=== PATIENT | male | born 1985 | race Caucasian/White ===

== ENCOUNTER 2019-08-14 15:21 | Inpatient (IN) | payer OTHER ==
[~2019-08-14] VITALS: Ht 172.7 cm; Wt 78.2 kg
[2019-08-14 16:00] VITALS: BP 129/74
[2019-08-14] MEDS ORDERED: SERT100T12 PO (16:07)
[2019-08-14] MEDS ORDERED: CIPR500T5 PO (16:07)
[2019-08-14] MEDS ORDERED: OMEP20CA11 PO (16:07)
[2019-08-14] MEDS ORDERED: AMLO5TAB9 PO (16:07)
[2019-08-14] MEDS ORDERED: CLON0.5T4 PO (16:07)
[2019-08-14] MEDS ORDERED: AMOX1TAB16 PO (16:07)
[2019-08-14] MEDS ORDERED: TRAZ-252 PO (16:07)
[2019-08-14] MEDS ORDERED: HYDR-3972 PO (16:07)
[2019-08-14] MEDS ORDERED: ONDANSETRON HCL/PF 4 MG/2 ML VIAL IVP PRN (16:30)
[2019-08-14] MEDS ORDERED: Z GUARD REMEDY 2 OZ OINT TP PRN (16:30)
--- NOTE | 2019-08-14 17:00 | NUR ---
RN OPENING NOTES RECEIVED PT VIA CHETNA A DIRECT ADMIN FROM [facility]. HE IS AOX4, VERBAL, AND AMBULATORY. HEAD IS MIDLINE, EYES ARE PERRLA. SKIN IS INTACT. PT IS COMPLAINING OF ABDOMINAL PAIN, ABDOMEN IS DISTENDED. BOWEL SOUNDS ARE HYPERACTIVE IN ALL 4 QUADRANTS. LUNGS SOUNDS ARE CLEAR BILATERALLY. PT HAS A 22 G ON LAC AND HAS A DRAIN ON THE BACK. SAFETY MEASURES HAVE BEEN IMPLEMENTED, CALL LIGHT IS WITHIN REACH, BED IS IN LOWEST AND LOCKED POSITION, WILL CONTINUE TO MONITOR FOR ANY CHANGES.
[2019-08-14] MEDS: IV NS 0.9% 1,000 ML IV PRN (17:13)
[2019-08-14] MEDS: MORPHINE SULFATE INJ 2 MG/ML DISP.SYRIN IV PRN ×2 (17:14→22:21)
--- NOTE | 2019-08-14 19:16 | NUR ---
RN CLOSING NOTES PATIENT IS RESTING IN BED COMFORTABLY AT THIS TIME. MORPHINE HAS HELPED WITH PAIN. PT NEEDS HAVE BEEN MET,NO ACUTE CHANGES OCCURRED THROUGHOUT THE SHIFT, VITAL SIGNS ARE STABLE. SAFETY MEASURES HAVE BEEN IMPLEMENTED, CALL LIGHT IS WITHIN REACH, BED IS IN LOWEST AND LOCKED POSITION, SIDE RAILS UP X2, WILL ENDORSE TO NIGHTSHIFT RN FOR CONTINUITY OF CARE.
--- NOTE | 2019-08-14 19:30 | NUR ---
MS RN OPENING NOTE RECEIVED PATIENT A/O X4 WITH NO SIGNS OF DISTRESS AND VERBAL. PATIENT ON ROOM AIR. SAJAN ACCESS ON LEFT AC WITH #22 GAUGE WITH NS RUNNING AT 150ML/HR. PATIENT IS ON BED REST BUT EXTREMITIES WNL. ALL SKIN IS INTACT. PATIENT HAS A HEMOVAC WITH NO SIGN OF IRRITATION OR INFECTION. WILL CONTINUE TO MONITOR.
[2019-08-14 20:00] VITALS: BP 145/81
--- NOTE | 2019-08-14 20:30 | NUR ---
[address] CHRISTIAN REGARDING PATIENT'S REQUEST FOR HIS ATB FROM HOME, PER DR. CHRISTIAN PATIENT IS NPO FOR PANCREATITIS AND SHOULD NOT HAVE ANYTHING BY MOUTH, ASKED IF HE WANTS ATB VIA IV BUT HE SAID NO. PATIENT NOTIFIED.
[2019-08-15] MEDS: IV NS 0.9% 1,000 ML IV PRN ×2 (00:03→14:08)
[2019-08-15 04:00] VITALS: BP 111/67
[2019-08-15] MEDS: MORPHINE SULFATE INJ 2 MG/ML DISP.SYRIN IV PRN ×5 (06:05→22:35)
[2019-08-15 06:57] LABS: BASOPHILS % (AUTO) 0.7 % (0.0-2.0); EOSINOPHILS % (AUTO) 3.4 % (0.0-6.0); HEMATOCRIT 36 % (39-51); LYMPHOCYTES % (AUTO) 19.7 % (20.0-44.0); MEAN CORPUSCULAR HGB CONC 33 g/dl (31.0-36.0); MEAN CORPUSCULAR VOLUME 83 fL (80-96); MONOCYTES # (AUTO) 0.3 /CMM (0.1-1.30); MONOCYTES % (AUTO) 6.9 % (2.0-12.0); NEUTROPHILS # (AUTO) 3.5 /CMM (1.8-8.9); NEUTROPHILS % (AUTO) 69.3 % (43.0-81.0); PLATELET COUNT (AUTO) 151 /CMM (150-450); RED BLOOD CELL COUNT(AUTO) 4.32 MIL/uL (4.5-6.0)
[2019-08-15 07:02] LABS: ALBUMIN 3.6 g/dL (3.4-5.0); BILIRUBIN,TOTAL 0.5 mg/dL (0.2-1.0); CALCIUM, SERUM 8.3 mg/dL (8.5-10.1); CREATININE 0.7 mg/dL (0.6-1.3); MAGNESIUM 1.8 mg/dL (1.8-2.4); PHOSPHORUS 3.5 mg/dL (2.5-4.9); TOTAL PROTEIN, SERUM 6.5 g/dL (6.4-8.2)
--- NOTE | 2019-08-15 07:25 | NUR ---
MS RN OPENING NOTE RECEIVED BEDSIDE REPORT FROM PM NURSE.PATIENT IS A/O X4.ABLE TO ANSWER BY CALLING NAME. NO SOB NO S/S OF DISTRESS NOTED. PATIENT ON ROOM AIR. IV ON LEFT AC #22 GAUGE WITH NS AT 150ML/HR. PATIENT HAS A HEMOVAC ,WILL DO CHECK LATER,PATIENT REQUESTING TO SLEEP MORE.NPO NOW.BED IS LOCKED AND IN LOW POSITION.SRX3.BED ALARM ON.WILL CONTINUE TO MONITOR. WILL CONTINUE TO MONITOR.
--- NOTE | 2019-08-15 07:30 | NUR ---
MS RN CLOSING NOTE PATIENT RESTING IN BED WITH NO SIGNS OF DISTRESS. ON ROOM AIR AND NO SOB. PATIENT HAS IV ON RIGHT MIDLINE RUNNING AT 150ML/HR. ALL SAFETY PRECAUTIONS APPLIED. REPORT GIVEN TO MORNING NURSE
[2019-08-15 08:00] VITALS: BP 138/83
[2019-08-15] MEDS ORDERED: IOHEXOL-300 100 ML VIAL IV ONE (09:06)
[2019-08-15] MEDS ORDERED: HYDROCODONE/APAP 5/325MG 1 EACH TABLET PO PRN (10:30)
--- NOTE | 2019-08-15 11:00 | NUR ---
MS RN NOTE SEEN BY ,UPDATED ABOUT PATIENT CONDITION.CHANGED NPO STATUS TO CLEAR LIQUID.GOT NEW ORDERS.WILL CONTINUE TO MONITOR.HEMOVAC DRESSING CHANGE DONE.SCANT AMOUNT OF GREENISH DISCHARGE SEEN IN HEMOVAC.
[2019-08-15] MEDS: clonazePAM 0.5 MG TABLET PO PRN (12:56)
[2019-08-15] MEDS ORDERED: MAG HYDROX/AL HYDROX/SIMETH 30 ML UDC PO PRN (13:00)
[2019-08-15] MEDS: PANTOPRAZOLE 40 MG TABLET.DR PO SCH (13:20)
[2019-08-15] MEDS: NICOTINE PATCH (21MG) 21 MG PATCH.TD24 TD SCH (13:20)
[2019-08-15] MEDS ORDERED: SERTRALINE HCL 50 MG TABLET PO SCH (13:30)
[2019-08-15] MEDS: AMLODIPINE BESYLATE 5 MG TABLET PO SCH (13:33)
[2019-08-15] MEDS ORDERED: CIPROFLOXACIN HCL 250 MG TABLET PO SCH ×2 (14:00→21:00)
[2019-08-15] MEDS ORDERED: AMOX/CLAVULANATE 875 MG TABLET PO SCH (14:00)
--- NOTE | 2019-08-15 14:00 | NUR ---
MS RN NOTE PATIENT WAS REALLY UPSET YELLING AND ANGRY.PRN MEDS GIVEN.PATIENT WANT ANTIBIOTICS TO BE CONTINUE AND TO BE GIVEN ALL MEDS THAT WAS NOT SCHEDULED ON TIME. MADE AWARE.CHANGED MED SCHEDULE AND PLACED ANTIBIOTICS.GOT NEW ORDER FOR NICOTINE PATCH PER PATIENT REQUEST.CALL MADE [facility] TO OBTAIN RECORDS OF CT SCAN AND IMAGES.SPOKE TO JAMILAH.EVEN AFTER OFFICE HOURS WILL HAVE SOME ONE AT OFFICE.OK TO PSYCHIATRY INSTRUCTOR AFTER OFFICE HOURS TOO. RELEASE OF INFORMATION FAXED.WILLAM MADE AWARE.ALL AROUND INKER MACHINE TO PSYCHIATRY INSTRUCTOR FROM [facility].[phone].CANCELLED ORDER FROM MARK TO PSYCHIATRY INSTRUCTOR.SPOKE TO HUONG. PER PATIENT HE DONT HAVE ANYONE TO PSYCHIATRY INSTRUCTOR FROM [facility].WILL CONTINUE TO MONITOR.
--- NOTE | 2019-08-15 15:59 | NUR ---
MS RN NOTE SEEN BY GRABIEL EVANGELISTA,UPDATED ABOUT PATIENT CONDITION.HE REFUSED IVF.EXPLAINED RISK AND BENEFIT STILL REFUSING.
[2019-08-15 16:00] VITALS: BP 146/93
[2019-08-15] MEDS ORDERED: VANCOMYCIN 1.5 GM in IV D5W 500 ML IV SCH (18:00)
[2019-08-15] MEDS ORDERED: FEE PK DOSING 1 MIN EA MC ONE (18:10)
--- NOTE | 2019-08-15 18:30 | NUR ---
MS RN NOTE JESSICA FROM GI NOTIFIED ABOUT CONSULT, NEED TO SEE THE PATIENT. MADE AWARE ABOUT CD RECEIVED.TO GIVE TO RADIOLOGIST .WENT TO RADIOLOGY BY [id number]. GONE FOR THE DAY.PACKET GIVEN TO JOAQUIM IN RADIOLOGY.CALL MADE TO .GOT NEW ORDER FOR HIDA SCAN WITH CCK EJECTION FRACTION.PATIENT MADE AWARE.LEFT MESSAGE TO .WAITING TO CALL BACK.WILL CONTINUE TO MONITOR.
--- NOTE | 2019-08-15 19:24 | NUR ---
MS RN NOTE ENDORSED TO PM NURSE FOR SAROJ.VITAL SIGNS STABLE. MADE AWARE THAT CT RESULT WILL BE READ BY TOMORROW.
--- NOTE | 2019-08-15 19:40 | NUR ---
MS RN OPENING NOTE, RECEIVED BEDSIDE REPORT FROM PM NURSE. PATIENT IS A/O X4. ABLE TO ANSWER BY CALLING NAME. NO SOB NO S/S OF DISTRESS NOTED. PATIENT ON ROOM AIR. IV ON LEFT AC #22 GAUGE WITH NS AT 150ML/HR. PATIENT HAS A HEMOVAC , WILL DO CHECK LATER, PATIENT REQUESTING TO SLEEP MORE. ON FULL LIQUID DIET NOW AND HE IS NPO AFTER MIDNIGHT FOR THE SURGERY IN THE MORNING . BED IS LOCKED AND IN LOW POSITION. . BED ALARM ON. WILL CONTINUE TO MONITOR.
[2019-08-15 20:00] VITALS: BP 126/86
[2019-08-15] MEDS: PIPERACILLIN /TAZOBACTAM 3.375 G in IV D5W 50 ML IV SCH (20:07)
[2019-08-15] MEDS: TRAZODONE 50 MG TABLET PO SCH (21:45)
[2019-08-16] VITALS: BP 126/86
[2019-08-16] MEDS: PIPERACILLIN /TAZOBACTAM 3.375 G in IV D5W 50 ML IV SCH ×3 (00:15→12:05)
[2019-08-16] MEDS ORDERED: VANCOMYCIN 1.25 GM in IV D5W 500 ML IV SCH (02:00)
[2019-08-16 04:00] VITALS: BP 108/71
[2019-08-16] MEDS: MORPHINE SULFATE INJ 2 MG/ML DISP.SYRIN IV PRN ×4 (04:24→21:09)
--- NOTE | 2019-08-16 07:20 | NUR ---
MS RN CLOSING NOTE, PATIENT IN BED SLEEPING ,A/O X4. ABLE TO ANSWER BY CALLING NAME. NO SOB NO S/S OF DISTRESS NOTED. PATIENT ON ROOM AIR. IV ON LEFT AC #22 GAUGE WITH NS AT 150ML/HR. PATIENT HAS A HEMOVAC , WILL DO CHECK LATER, PATIENT REQUESTING TO SLEEP MORE. ON FULL LIQUID DIET NOW AND HE IS NPO AFTER MIDNIGHT FOR THE SURGERY IN THE MORNING . BED IS LOCKED AND IN LOW POSITION. . BED ALARM ON. WILL CONTINUE TO MONITOR.
[2019-08-16] MEDS ORDERED: PANTOPRAZOLE 40 MG TABLET.DR PO SCH (07:30)
--- NOTE | 2019-08-16 07:39 | NUR ---
MS RN CLOSING NOTE, PATIENT IN BED SLEEPING A/O X4. ABLE TO ANSWER BY CALLING NAME. NO SOB NO S/S OF DISTRESS NOTED. PATIENT ON ROOM AIR. IV ON LEFT AC #22 GAUGE WITH NS AT 150ML/HR. PATIENT HAS A HEMOVAC , PATIENT WAS ABLE TO SLEEP WELL DURING NIGHT. PATIENT IS NPO SINCE MIDNIGHT.. BED IS LOCKED AND IN LOW POSITION. WILL ENDORSE THE PATIENT ON AM RN FOR SAROJ.
[2019-08-16 07:44] LABS: CALCIUM, SERUM 8.8 mg/dL (8.5-10.1); CREATININE 0.7 mg/dL (0.6-1.3); POTASSIUM 3.6 mmol/L (3.5-5.1)
[2019-08-16 08:00] VITALS: BP 112/71
[2019-08-16] MEDS ORDERED: AMLODIPINE BESYLATE 5 MG TABLET PO SCH (09:00)
[2019-08-16] MEDS ORDERED: SERTRALINE HCL 50 MG TABLET PO SCH (09:00)
[2019-08-16] MEDS: NICOTINE PATCH (21MG) 21 MG PATCH.TD24 TD SCH (09:00)
[2019-08-16] MEDS: SERTRALINE HCL 50 MG TABLET PO SCH (12:06)
[2019-08-16] MEDS: PANTOPRAZOLE 40 MG TABLET.DR PO SCH (12:07)
[2019-08-16] MEDS: AMLODIPINE BESYLATE 5 MG TABLET PO SCH (12:07)
[2019-08-16] MEDS: clonazePAM 0.5 MG TABLET PO PRN (12:19)
[2019-08-16] MEDS ORDERED: NICOTINE PATCH (21MG) 21 MG PATCH.TD24 TD ONE (12:30)
[2019-08-16] MEDS: MEROPENEM 1 G in IV NS 0.9% 100 ML IV SCH ×2 (14:32→21:08)
[2019-08-16 16:00] VITALS: BP 141/84
--- NOTE | 2019-08-16 16:19 | NUR ---
CLARIFIED WITH DR. MAIN PROCEDURE TO BE DONE WITH THE PATIENT,PER MD WILL DO ULTRASOUND FIRST IN AM AND CHECK FOR FLUIDS,RADIOLOGY MADE AWARE,WILL KEEP NPO POST MIDNIGHT FOR POSSIBLE PROCEDURE IN AM.ROBE Olivas MADE AWARE.
--- NOTE | 2019-08-16 17:10 | NUR ---
ALERT, ORIENTED, APPROPRIATE, C/O BACK PAIN, WHERE HEMOVAC INSERTION SITE. CLAIMED THE PAIN IS NOTHING NEW, ASKED FOR MSO4 X 2 DURING THIS SHIFT. SEEN BY THE ATTENDING, STARTS PATIENT ON CLEAR LIQUID, TOLERATED WELL. WANTS SOLID FOOD.
--- NOTE | 2019-08-16 18:41 | NUR ---
PATIENT VERY UPSET WITH CRUSHER MACHINE OPERATOR AT BEDSIDE ,COMPLAINING REGARDING FOOD ,AND ALSO PAIN GETTING WORST DESPITE PRN MORPHINE.DR. MAIN PAGEElif REGARDING PAIN MANAGEMENT AWAITS RESPONSE.
--- NOTE | 2019-08-16 18:56 | NUR ---
DR. MAIN RETURNED CALL AND RELAYED PATIENT SITUATION AND COMPLAIN,PER MD HE CANNOT INCREASE MORPHINE DOSE ANYMORE AND HE WILL EVALUATE PATIENT IN AM,PATIENT VERY UPSET .
--- NOTE | 2019-08-16 19:08 | NUR ---
at 1654 instead of pulling 2 syringes of mso4, total 4mg, ivp, pulled only one by mistake, when scanned the med, found out. back to get one more syringe of 2mg , that is when discrepancy came from
--- NOTE | 2019-08-16 19:20 | NUR ---
also clarified with Dr. Maciel regarding ultrasound nobody ordered it ,per md he will folllow up and ok patient to eat.will follow up in am.
[2019-08-16 20:00] VITALS: BP 156/90
--- NOTE | 2019-08-16 20:01 | NUR ---
RN NOTE CHARGE NURSE SPOKE TO DR MAIN REGARDING PROCEDURE FOR TOMORROW, PER DR MAIN CALL DR SOTO AND GET AN ORDER FOR PROCEDURE, CALLED DR SOTO AT , DR SOTO GAVE AN ORDER FOR ULTRASOUND GUIDED PERCUTANEOUS DRAINAGE OF ABSCESS AND ACTIVATE AN ORDER FOR CT PERCUTANEOUS DRAINAGE ABSCESS WITH CATH, PER DR SOTO HE WILL DO ULTRASOUND GUIDED PERCUTANEOUS DRAINAGE FIRST AND HE WILL DECIDE IF HE NEEDS SECOND PROCEDURE, DR MAIN IS AWARE, CHARGE NURSE IS AWARE, PATIENT WILL REMAIN NPO AFTER MIDNIGHT
[2019-08-16] MEDS: TRAZODONE 50 MG TABLET PO SCH (21:08)
[2019-08-17] MEDS: IV NS 0.9% 1,000 ML IV PRN ×2 (02:04→21:06)
[2019-08-17 04:00] VITALS: BP 91/49
[2019-08-17] MEDS: MEROPENEM 1 G in IV NS 0.9% 100 ML IV SCH ×3 (05:02→21:08)
[2019-08-17 05:10] VITALS: BP 111/76
[2019-08-17] MEDS: MORPHINE SULFATE INJ 2 MG/ML DISP.SYRIN IV PRN ×4 (06:19→21:09)
[2019-08-17 06:28] LABS: EOSINOPHILS % (AUTO) 5.7 % (0.0-6.0); HEMATOCRIT 34 % (39-51); HEMOGLOBIN 11.4 g/dL (13.5-17.5); LYMPHOCYTES # (AUTO) 0.9 /CMM (0.8-4.8); LYMPHOCYTES % (AUTO) 24.2 % (20.0-44.0); MEAN CORPUSCULAR HGB CONC 34 g/dl (31.0-36.0); MEAN CORPUSCULAR VOLUME 83 fL (80-96); MONOCYTES # (AUTO) 0.3 /CMM (0.1-1.30); MONOCYTES % (AUTO) 9.2 % (2.0-12.0); NEUTROPHILS # (AUTO) 2.2 /CMM (1.8-8.9); NEUTROPHILS % (AUTO) 59.9 % (43.0-81.0); PLATELET COUNT (AUTO) 140 /CMM (150-450); RED BLOOD CELL COUNT(AUTO) 4.08 MIL/uL (4.5-6.0); WHITE BLOOD COUNT (AUTO) 3.7 K/uL (4.3-11.0)
[2019-08-17 06:44] LABS: CALCIUM, SERUM 8.9 mg/dL (8.5-10.1); CREATININE 0.7 mg/dL (0.6-1.3); POTASSIUM 4.2 mmol/L (3.5-5.1)
--- NOTE | 2019-08-17 07:05 | NUR ---
MS RN OPENING RECEIVED PATIENT A/OX4. NO RESPIRATORY DISTRESS NOTED. L LOWER BACK HEMOVAC NOT DRAINING. PER PATIENT, NPO SINCE MIDNIGHT LAST NIGHT. REPORTS ABDOMINAL PAIN. L AC 22G C/D/I, INFUSING NS @150mL/HR, ORDERED. CONSENTS SIGNED FOR PROCEDURE TODAY. PATIENT ABLE TO MAKE NEEDS KNOWN. WILL CONT TO MONITOR
[2019-08-17] MEDS: PANTOPRAZOLE 40 MG TABLET.DR PO SCH ×2 (07:30→12:26)
[2019-08-17 08:00] VITALS: BP 121/82
[2019-08-17] MEDS: AMLODIPINE BESYLATE 5 MG TABLET PO SCH (09:00)
[2019-08-17] MEDS: SERTRALINE HCL 50 MG TABLET PO SCH ×2 (09:00→12:25)
[2019-08-17] MEDS ORDERED: FENTANYL PF 100MCG/2ML AMPUL IV ONE (10:00)
[2019-08-17] MEDS ORDERED: MIDAZOLAM HCL 2 MG/2ML VIAL IV ONE (10:00)
[2019-08-17] MEDS ORDERED: NALOXONE HCL 0.4 MG/ML AMPUL IV ONE (10:00)
--- NOTE | 2019-08-17 12:06 | NUR ---
PATIENT RETURNED FROM PROCEDURE, UNABLE TO DRAIN PSEUDOCYST. PATIENT TEARFUL. SEEN BY DR. MAIN. OFFERED MEDS ORDERED FOR PAIN + ANXIETY
[2019-08-17] MEDS: NICOTINE PATCH (21MG) 21 MG PATCH.TD24 TD SCH (12:26)
[2019-08-17] MEDS: clonazePAM 0.5 MG TABLET PO PRN (12:26)
[2019-08-17 16:00] VITALS: BP 130/61
--- NOTE | 2019-08-17 19:00 | NUR ---
MS RN CLOSING NO SIGNIFICANT CHANGES IN PATIENT PHYSICAL CONDITION THROUGHOUT SHIFT. PATIENT GOT UPSET AFTER PROCEDURE. DENIES S.I., REPORTS BEING FRUSTRATED. ENCOURAGEMENT, COMFORT AND LISTENING PROVIDED. FATHER VISITED PATIENT TODAY. DIET ADVANCED TO REGULAR. THROUGHOUT SHIFT, PATIENT COMPLAINED OF ABDOMINAL PAIN. MEDS GIVEN ORDERED.
[2019-08-17 20:00] VITALS: BP 127/89
[2019-08-17] MEDS: TRAZODONE 50 MG TABLET PO SCH (21:06)
[2019-08-18 04:00] VITALS: BP 115/73
[2019-08-18] MEDS: MEROPENEM 1 G in IV NS 0.9% 100 ML IV SCH ×3 (04:17→21:15)
[2019-08-18] MEDS: MORPHINE SULFATE INJ 2 MG/ML DISP.SYRIN IV PRN ×3 (04:18→22:51)
[2019-08-18 07:37] LABS: BASOPHILS # (AUTO) 0.1 /CMM (0.0-0.2); EOSINOPHILS % (AUTO) 4.9 % (0.0-6.0); HEMATOCRIT 36 % (39-51); HEMOGLOBIN 12.1 g/dL (13.5-17.5); LYMPHOCYTES # (AUTO) 1.1 /CMM (0.8-4.8); LYMPHOCYTES % (AUTO) 17.8 % (20.0-44.0); MEAN CORPUSCULAR HGB CONC 33 g/dl (31.0-36.0); MEAN CORPUSCULAR VOLUME 83 fL (80-96); MONOCYTES # (AUTO) 0.6 /CMM (0.1-1.30); MONOCYTES % (AUTO) 9.2 % (2.0-12.0); NEUTROPHILS # (AUTO) 4.1 /CMM (1.8-8.9); NEUTROPHILS % (AUTO) 67.1 % (43.0-81.0); PLATELET COUNT (AUTO) 166 /CMM (150-450); WHITE BLOOD COUNT (AUTO) 6.1 K/uL (4.3-11.0)
--- NOTE | 2019-08-18 07:43 | NUR ---
MS RN NOTES PT IN BED SITTING AWAKE, AWAKE, ALERT ORIENTED X4. HE COMPLAINS OF UPPER QUADRANT PAIN OF 6/10. NO SOB NOTED AT THIS TIME. ALL SAFETY MEASURES OBSERVED BED AT LOWEST POSITION LOCKED CALL LIGHT IN REACH.LAC NS 150 ML /H RUNNING. WILL CONTINUE TO MONITOR.
[2019-08-18 08:23] LABS: CREATININE 0.8 mg/dL (0.6-1.3)
[2019-08-18] MEDS: PANTOPRAZOLE 40 MG TABLET.DR PO SCH (08:43)
[2019-08-18] MEDS: AMLODIPINE BESYLATE 5 MG TABLET PO SCH (08:43)
[2019-08-18] MEDS: NICOTINE PATCH (21MG) 21 MG PATCH.TD24 TD SCH (08:43)
[2019-08-18] MEDS: SERTRALINE HCL 50 MG TABLET PO SCH (08:49)
[2019-08-18] MEDS: clonazePAM 0.5 MG TABLET PO PRN (10:33)
[2019-08-18 12:00] VITALS: BP 137/88
[2019-08-18 16:00] VITALS: BP 150/87
--- NOTE | 2019-08-18 19:41 | NUR ---
MS RN NOTES PT ON CHAIR SITTING A/O X4. NO SIGNS OF SOB AND DISCOMFORT AT THIS TIME. LEFT HAND IV PATENT AND FLUSHED WELL. ALL NEEDS ATTENDED. SAFETY MEASURES OBSERVED. CALL LIGHT WITHIN CLOSE REACH, BED AT THE LOWEST POSITION AND LOCKED. NO DRAINAGE FROM HEMOVAC NOTED TODAY. ENDORSED TO SURGICAL ATTENDANT POP TO SEND THE SAMPLE OF HEMOVAC DRAINAGE TO LAB. ENDORSED TO SURGICAL ATTENDANT NURSE FOR SAROJ.
--- NOTE | 2019-08-18 19:45 | NUR ---
MS/RN NOTES RECEIVED PT. SITTING UP IN CHAIR. PT. IS AWAKE, ALERT AND ORIENTED X4. BREATHING EVEN AND UNLABORED ON ROOM AIR. NO SOB, RESPIRATORY DISTRESS OR COMPLAINTS OF PAIN NOTED AT THIS TIME. PT. WITH LEFT AC 22 GAUGE IV SALINE LOCK PRESENT, PATENT AND INTACT. PT. WITH LEFT SIDE POSTERIOR HEMOVAC PRESENT AND INTACT. CALL LIGHT WITHIN REACH, WILL CONTINUE TO MONITOR.
[2019-08-18 20:00] VITALS: BP 146/90
[2019-08-18] MEDS: TRAZODONE 50 MG TABLET PO SCH (21:15)
[2019-08-19 04:00] VITALS: BP 142/70
[2019-08-19] MEDS: MEROPENEM 1 G in IV NS 0.9% 100 ML IV SCH ×3 (05:27→20:40)
[2019-08-19] MEDS: MORPHINE SULFATE INJ 2 MG/ML DISP.SYRIN IV PRN ×3 (05:54→15:46)
--- NOTE | 2019-08-19 06:50 | NUR ---
MS/RN NOTES PT. IS SITTING UP IN BED, PT. IS AWAKE, ALERT AND ORIENTED X4. BREATHING EVEN AND UNLABORED ON ROOM AIR. NO SOB OR RESPIRATORY DISTRESS NOTED AT THIS TIME. PT. COMPLAINING OF ABDOMINAL PAIN 3/. PT. STATES PAIN MEDICATION WAS EFFECTIVE AND THE PAIN IS GOING DOWN. PT. WITH RIGHT WRIST 22 GAUGE IV SALINE LOCK PRESENT, PATENT AND INTACT ADMINISTERING TO PT. MERREM ANTIBIOTIC ORDERED. PT. WITH LEFT SIDE POSTERIOR HEMOVAC PRESENT AND INTACT NO DRAINAGE NOTED. ALL PT. NEEDS MET. BED LOCKED AND IN LOWEST POSITION, SIDE RAILS UP X2, CALL LIGHT WITHIN REACH, WILL ENDORSE TO DAYSHIFT NURSE FOR CONTINUITY OF CARE.
--- NOTE | 2019-08-19 07:10 | NUR ---
MS RN OPENING NOTE RECEIVED PATIENT A/OX4. NO RESPIRATORY DISTRESS OR SOB NOTED. L LOWER BACK HEMOVAC NOT DRAINING. R WRIST 22G C/D/I, INFUSING NS @150mL/HR, ORDERED. SAFETY MEASURES IN PLACE. BED LOCKED AND LOW, SIDE RIALS UP X2, CALL LIGHT WITHIN REACH. WILL CONT TO MONITOR.
[2019-08-19 08:00] VITALS: BP 126/77
[2019-08-19] MEDS: PANTOPRAZOLE 40 MG TABLET.DR PO SCH (08:16)
[2019-08-19 08:28] LABS: BASOPHILS # (AUTO) 0.1 /CMM (0.0-0.2); EOSINOPHILS % (AUTO) 4.8 % (0.0-6.0); HEMATOCRIT 34 % (39-51); HEMOGLOBIN 11.3 g/dL (13.5-17.5); LYMPHOCYTES # (AUTO) 1.1 /CMM (0.8-4.8); LYMPHOCYTES % (AUTO) 22.6 % (20.0-44.0); MEAN CORPUSCULAR HGB CONC 34 g/dl (31.0-36.0); MEAN CORPUSCULAR VOLUME 83 fL (80-96); MONOCYTES # (AUTO) 0.4 /CMM (0.1-1.30); MONOCYTES % (AUTO) 8.8 % (2.0-12.0); NEUTROPHILS # (AUTO) 3.2 /CMM (1.8-8.9); NEUTROPHILS % (AUTO) 62.8 % (43.0-81.0); PLATELET COUNT (AUTO) 147 /CMM (150-450); RED BLOOD CELL COUNT(AUTO) 4.03 MIL/uL (4.5-6.0)
[2019-08-19] MEDS: SERTRALINE HCL 50 MG TABLET PO SCH (08:35)
[2019-08-19 08:36] LABS: CALCIUM, SERUM 8.6 mg/dL (8.5-10.1); CREATININE 0.7 mg/dL (0.6-1.3); POTASSIUM 4.2 mmol/L (3.5-5.1)
[2019-08-19] MEDS: AMLODIPINE BESYLATE 5 MG TABLET PO SCH (08:36)
[2019-08-19] MEDS: NICOTINE PATCH (21MG) 21 MG PATCH.TD24 TD SCH (08:37)
[2019-08-19] MEDS: clonazePAM 0.5 MG TABLET PO PRN (09:14)
[2019-08-19] MEDS: IV NS 0.9% 1,000 ML IV PRN (10:25)
--- NOTE | 2019-08-19 11:15 | NUR ---
MS RN NOTE DR. MAIN AT BEDSIDE AND DISCUSSED THE PLAN OF CARE WITH PT. PER DR. MAIN HEMOVAC IS IN GOOD CONDITION AND THERE IS NO NEED TO CHANGE IT.
[2019-08-19 16:00] VITALS: BP 144/88
[2019-08-19] MEDS ORDERED: MERO1VIA IV (16:11)
[2019-08-19] MEDS ORDERED: SERT50TA PO (16:11)
[2019-08-19] MEDS ORDERED: Morphine Sulfate Inj IV (16:11)
--- NOTE | 2019-08-19 19:12 | NUR ---
MS RN CLOSING NOTE NO SIGNIFICANT CHANGES IN PATIENT CONDITION THROUGHOUT SHIFT. PATIENT COMPLAINED OF ABDOMINAL PAIN DURING THE SHIFT. PAIN MED GIVEN. NO COMPLAIN OF PAIN AT THIS TIME. NO DRAINAGE FROM HEMOVAC SO NO DRAINAGE CULTURE WAS COLLECTED. PT TOOK SHOWER AT 18:40. HEMOVAC DRESSING INTACT. SAFETY MEASURES IN PLACE. WILL ENDORSE TO PM NURSE FOR SAROJ.
--- NOTE | 2019-08-19 19:15 | NUR ---
MS RN OPENING NOTES Patient received in bed, alert, oriented x 4. Breathing even and unlabored. Not in any distress, on room air. No complaints at this time. Peripheral IV on R) wrist infusing as ordered. Hemovac dressing intact, no drainage. Safety measures in place. Will continue to monitor accordingly
[2019-08-19 20:00] VITALS: BP 133/83
--- NOTE | 2019-08-19 20:05 | NUR ---
RN NOTES Received a call from RADHA Prieto. Patient is for transfer to [facility] in room 1223-2. To be picked up by [facility] at 2100.
--- NOTE | 2019-08-19 20:15 | NUR ---
RN NOTES Called Adrienne Daugherty to give report. Unable to speak with RN. As per tie sawyer, RN will call back as RN is busy as of this time
--- NOTE | 2019-08-19 20:55 | NUR ---
RN NOTES Called Adrienne Daugherty again to give report but still unable to speak with the nurse. Will call back again
--- NOTE | 2019-08-19 21:00 | NUR ---
RN NOTES Called Adrienne Daugherty again as [facility] already here to lease picker the patient. Repost given to KEYANA Art.
--- NOTE | 2019-08-19 21:05 | NUR ---
RN NOTES Talked to the patient and informed him about his transfer to [facility]. Patient is already aware and he told me that he already called his mom about the transfer, so no need to inform her.
--- NOTE | 2019-08-19 21:15 | NUR ---
RN NOTES Patient discharged to [facility] accompanied by [place] ambulance personnel. IV on R) wrist g#22 not removed as patient is hardstick. RN Art of [facility] is aware. Discharge papers and CD given to Ambulance personnel. Patient discharged in stable condition
== END 2019-08-19 16:00 | disposition home or self-care (01) | DRG 252 ==
LOC: MEDSG1 15:43 → UNDODISIN 08-20
PROVIDERS: ADMIT Internal Medicine; ATTEND Family Medicine
DX: K91.89 Other postprocedural complications and disorders of digestive system (principal); K85.90 Acute pancreatitis without necrosis or infection, unspecified; K86.3 Pseudocyst of pancreas; E11.65 Type 2 diabetes mellitus with hyperglycemia; D64.9 Anemia, unspecified; F32.9 Major depressive disorder, single episode, unspecified; F41.9 Anxiety disorder, unspecified; I10 Essential (primary) hypertension; E66.9 Obesity, unspecified; Z68.26 Body mass index [BMI] 26.0-26.9, adult; Y83.8 Other surgical procedures as the cause of abnormal reaction of the patient, or of later complication, without mention of misadventure at the time of the procedure; Y82.9 Unspecified medical devices associated with adverse incidents; K86.1 Other chronic pancreatitis
CPT/HCPCS: 36415; 75989; 75989-TC; 78226; 80048-TC; 80053-TC; 80061-TC; 80202-TC; 83690-TC; 83735-TC; 84100-TC; 85025-TC; 85610-TC; 85730-TC; 87081-TC; A9537; G0378; J2185; J2250; J2270; J2310; J2543; J3010; J3370; J7030; J7060; Q9967